=== PATIENT | female | born 1980 | race Caucasian/White ===

== ENCOUNTER 2016-10-08 16:10 | Emergency (ER) | payer OTHER ==
[~2016-10-08] VITALS: Ht 162.6 cm; Wt 63.0 kg
[2016-10-08 16:12] VITALS: BP 113/83; PULSE 112; RESP 15; TEMP 98.2; O2SAT 100
[2016-10-08] MEDS ORDERED: ESCI10TA PO (16:22)
[2016-10-08] MEDS ORDERED: ACETAMINOPHEN/HYDROcodone 325 MG/5 MG TAB PO ONE (16:30)
[2016-10-08] MEDS ORDERED: IBUPROFEN 600 MG TAB PO ONE (16:30)
[2016-10-08] MEDS ORDERED: IBUP-232 PO (16:31)
[2016-10-08] MEDS ORDERED: NORC5TAB PO (16:31)
[2016-10-08] MEDS ORDERED: PERI0.126 SWISH-SPIT (16:31)
--- NOTE | 2016-10-08 16:31 | PD ---
HPI Chief Complaint: Oral / Dental Pain or Problem Time Seen by Provider: 16:18 Travel History International Travel<30 days: No Contact w/Intl Traveler<30days: No Traveled to known affect area: No History of Present Illness HPI The patient is a 36-year-old female who presents emergency department for toothache. The patient complains of pain located in the left upper posterior aspect of her mouth for the last 3 days. The pain radiates up to the left temporal area. The patient was seen by her dentist several days ago who placed in a temporary cap, until she can obtain records from her dentist office and [place] where she originally had work done on the affected tooth. The pain is throbbing, constant, mildly sensitive to cold air, and there are no current alleviating factors. The patient has been taking [id number] Orajel without any alleviation of her symptoms. She denies any extraocular movement pain, diplopia, left ear pain, or fever. PFSH Past Medical History Anxiety: Yes Diminished Hearing: No Tetanus Vaccination: < 5 Years Influenza Vaccination: No ?: Unknown LMP: 2 WEEKS Past Surgical History Appendectomy: Yes Tonsillectomy: Yes Other Surgery: Yes (LAP EXP, NASAL SURGERY) Social History Alcohol Use: No Tobacco Use: Yes (/ PPD) Substance Use: No Allergies-Medications (Allergen,Severity, Reaction): Coded Allergies: No Known Allergies (Unverified , 10/08/16) Reported Meds & Prescriptions Reported Meds & Active Scripts Active Reported Escitalopram (Escitalopram Oxalate) 10 Mg Tab 10 Mg PO DAILY Review of Systems Except as stated in HPI: all other systems reviewed are Neg General / Constitutional: No: Fever HENT: Positive: Dental Difficulties, No: Neck Pain, Earache Gastrointestinal: No: Nausea, Vomiting Neurologic: No: Dizziness, Focal Abnormalities Physical Exam Narrative GENERAL: Awake, alert, pleasant 36-year-old female who appears her stated age and is in no acute respiratory distress. SKIN: Focused skin assessment warm/dry. HEAD: Atraumatic. Normocephalic. EYES: Pupils equal and round. Pupils are 4 mm bilateral and reactive. EOMs are intact. ENT: No nasal bleeding or discharge. TMs are translucent and EACs are clear. Inspection of dentition reveals that tooth #14 is missing, tooth #16 is partially avulsed, just inferior to the gumline, with mild tenderness. No drainage or significant edema noted along the gumline. Orajel as noted in the oropharynx. NECK: Trachea midline. No JVD. MUSCULOSKELETAL: No obvious deformities. No clubbing. No cyanosis. No edema. NEUROLOGICAL: Awake and alert. No obvious cranial nerve deficits. Motor grossly within normal limits. Normal speech. PSYCHIATRIC: Appropriate mood and affect; insight and judgment normal. Data Data Last Documented VS Vital Signs Date Time Temp Pulse Resp B/P Pulse Ox O2 Delivery O2 Flow Rate FiO2 10/08/16 16:12 98.2 112 15 113/83 100 Orders Ibuprofen (Motrin) (10/08/16 16:30) Acetamin-Hydrocod 325-5 Mg ([place] 5-325 (10/08/16 16:30) [facility] Medical Decision Making Medical Screen Exam Complete: Yes Emergency Medical Condition: Yes Medical Record Reviewed: Yes Differential Diagnosis Differential diagnosis includes odontalgia, pericarditis, impacted tooth, gingivitis, ANUG, cavity. Narrative Course The patient will be placed on ibuprofen, [place], and Peridex. The patient is advised to follow-up with her dentist. Diet as tolerated. Avoid triggering factors for pain. Diagnosis Primary Impression: Odontalgia Patient Instructions: Narcotic given in the ED, General Instructions Additional Instructions: Medications as directed. Follow-up with her dentist. Avoid triggering factors. Return if symptoms worsen or progress. Med/Other Pt SpecificInfo: Prescription(s) given Scripts Ibuprofen 600 Mg [id number] Mg PO Q6H PRN (Pain/Inflammation) #20 TAB Ref 0 Prov:Martinez Hartman MD 10/08/16 Hydrocodone-Acetaminophen ([place])5-325 mg Tab1 Tab PO Q6H PRN (PAIN) #15 TAB Ref 0 Prov:Martinez Hartman MD 10/08/16 Chlorhexidine Gluconate (Mouth) Liq (Peridex Liq)0.12% Soln15 Ml SWISH-SPIT BID #473 ML Ref 0 Prov:Martinez Hartman MD 10/08/16 Disposition: 01 DISCHARGE HOME Condition: Stable Martinez Hartman MD October 08, 2016 16:31
== END 2016-10-08 17:00 | disposition home or self-care (01) ==
LOC: PHEFT 16:10
DX: K08.89 Other specified disorders of teeth and supporting structures (principal); F17.210 Nicotine dependence, cigarettes, uncomplicated; F41.8 Other specified anxiety disorders
CPT/HCPCS: 99282